=== PATIENT | female | born 2000 | race Two or more races ===

== ENCOUNTER 2022-05-28 18:11 | Emergency (ER) | payer BC, OTHER ==
[~2022-05-28] VITALS: Ht 165.1 cm; Wt 90.0 kg
--- NOTE | ~2022-05-28 | CONS ---
[facility] [address], [place] [address] Draft DATE OF CONSULTATION: 05/28/2022 CHIEF COMPLAINT: Right side pain. HISTORY OF PRESENT ILLNESS: Ms. Tucker is a pleasant 22-year-old female who presents to the emergency department with a 5-day history of acute right abdominal and flank pain. Menarche at age 13. LMP April 28, 2022 with irregular heavy cycles. The patient reports that she awoke Thursday morning to acute abdominal pain and she and her life partner called an ambulance. She reports pain was on her right side radiating to her umbilicus and to her back. She received morphine, but she reports that she has been in continued pain. The pain is progressive, rated 8/10, colicky in nature. She describes "it is like a string attached to my uterus and when I pee it feels like everything is going to come out, it hurts that bad." Again, the patient with irregular cycles, bleeding 14 days of the month, heavy all 14 days with clots and accidents each day and worse at night. She reports that periods are very heavy and painful and the pain starts 1-2 days before onset of her pain and continues all the way through her bleeding. She reports that three years ago, she was diagnosed with endometriosis by her gynecologic specialist in [place] after a syncopal event and possibly of the skull fracture. It is unclear if they did diagnostic laparoscopy or excision of endometriosis. The patient was on norethindrone for abnormal bleeding and abnormal bleeding and contraception. However, the patient reports that her periods were not improved and she stopped this some time ago. The patient is bisexual with her life partner being female and she occasionally has sex with male, the last approximately six weeks ago. She uses condoms for contraception and denies history of STDs. The patient had gonorrhea and chlamydia screening done on 05/24 in the ER that was negative. She has since been seen at the [facility] Emergency Department and is again back to our ER sigifredojono. 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 PAST MEDICAL HISTORY: 1. 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 2. History of endometriosis. 3. Heart murmur. 4. Anemia. 5. Possible lymphoma or hyperreactive lymph nodes. PAST SURGICAL HISTORY: 1. The patient reports a robust surgical history including renal transplant at age 7 with inspector balance bridge and an other specialist at [facility]. 2. Renal biopsy. PATIENT NAME: ANITA TUCKER CONSULTATION DATE OF : 02 REPORT #: [id number] PHYSICIAN: RYNE SCHWARTZ DO PCP: OTHER PCP REPORT IS CONFIDENTIAL AND NOT TO BE RELEASED WITHOUT AUTHORIZATION [address] [address] Draft 3. History of biopsy of lymph nodes. 4. Umbilical hernia with mesh. 5. Tubes and ovaries. MEDICATIONS: 1. Astagraf. 2. Amlodipine. 3. Azathioprine. 4. Metoprolol. 5. Prednisone. ALLERGIES: 1. Warfarin. 2. Iodine. FAMILY HISTORY: 1. Crohn's. 2. Diabetes. 3. Endometriosis. 4. Possible uterine and/or ovarian cancer on her mother's side. SOCIAL HISTORY: The patient denies alcohol, drug, or tobacco use. PHYSICAL EXAMINATION: VITAL SIGNS: Temperature 98.2, pulse 85, respiratory rate 16, blood pressure 126/78. GENERAL: The patient is lying on hospital bed, appears comfortable. HEENT: Normocephalic, atraumatic. NECK: Supple. Trachea midline with no masses or lymphadenopathy. CHEST: Regular rate and rhythm. LUNGS: Clear to auscultation bilaterally. BREASTS: The patient did request a breast exam today, which was performed that demonstrates some fibrocystic changes bilaterally with no discrete or concerning breast masses. ABDOMEN: Complex abdominal scars consistent with her surgical history. Nondistended and somewhat tender along the right side both upper and lower quadrants with no flank pain to percussion. There is guarding, but no rebound is noted. EXTREMITIES: No edema, but significant burden of warts on her legs. PELVIC: Normal external genitalia with normal clitorus, urethral meatus, bilateral Sterrett's, and Bartholin glands. Speculum exam was not performed per the patient request. However, bimanual exam was performed that demonstrates soft, pliable, nontender pelvic floor, nontender urethra and very mildly tender bladder. No cervical motion tenderness. However, the uterus is somewhat tender. No adnexal masses bilaterally and some tenderness of the uterosacral and right adnexa. The patient also has significant right PATIENT NAME: ANITA TUCEKR CONSULTATION DATE OF : 02 REPORT #: [id number] PHYSICIAN: RYNE SCHWARTZ DO PCP: OTHER PCP REPORT IS CONFIDENTIAL AND NOT TO BE RELEASED WITHOUT AUTHORIZATION [address] [address] Draft upper quadrant pain to palpation again with no rebound noted. LABORATORY DATA: WBCs 6.9, hemoglobin 9.0, platelets 217. Sodium 139, potassium 3.4, chloride 106, CO2 of 21, BUN 24, creatinine 4.46 with GFR 14, glucose 94, calcium 8.4, AST 26, ALT 40, alkaline phosphatase 174. Gonorrhea and chlamydia were negative on 05/25/2022. Dysmenorrhea. IMAGING DATA: Transvaginal ultrasound 05/25/2022 demonstrates uterus 9.3 x 5.1 x 5.2 with 16 mm thick endometrium with the right ovary 2.4 x 4.0 x 3.6 cm with normal parenchyma and follicles. Left ovary 2.7 x 1.7 x 2.8 cm, also with normal parenchyma and follicles. Small amount of free fluid, likely physiologic. There was a 15 mm tube like tubular fluid-filled structure in the posterior cul-de-sac. CT abdomen and pelvis was recommended and performed that demonstrates right renal transplant kidney with atrophic [place] kidneys. Scant free fluid in the cul-de-sac with normal appearing adrenal glands, kidneys, ureters, urinary bladder, uterus, adnexa and pelvic sidewall. ASSESSMENT: Abdominal pain of unknown etiology. I suspect possible endometriosis flare. She has stopped her norethindrone and has irregular heavy cycles and is participating in sex with both men and women while using condoms. We reviewed her medications and the danger that they pose to . Also discussed the endometriosis is managed by surgical intervention with excision of endometriosis and/or hormonal intervention. I am unsure, which hormonal contraceptive is most appropriate for given her complex medical history and I recommend consultation with her inspector balance bridge and primary paint roller assembler in [place] for further evaluation and treatment. I do not see acute process requiring immediate intervention. The patient will keep her consultation with [facility] [place] next week. All izquierdo questions were answered to the best of my ability and patient's apparent satisfaction. Approximately 1 hour of time was spent today. Ryne Schwartz DO JDW/MODL /[id number] PATIENT NAME: ANITA TUCKER CONSULTATION DATE OF : 02 REPORT #: [id number] PHYSICIAN: RYNE SCHWARTZ DO PCP: OTHER PCP REPORT IS CONFIDENTIAL AND NOT TO BE RELEASED WITHOUT AUTHORIZATION [address] [address] Draft Copies: ~ PATIENT NAME: ANITA TUCKER CONSULTATION DATE OF : 02 REPORT #: [id number] PHYSICIAN: RYNE SCHWARTZ DO PCP: OTHER PCP REPORT IS CONFIDENTIAL AND NOT TO BE RELEASED WITHOUT AUTHORIZATION
[~2022-05-28 18:11] MED LIST: AMLODIPINE BESYL5 MG PO; ASTAGRAF XL5 MG PO; AZATHIOPRINE50 MG PO; METOPROLOL SUCC25 MG PO; OXYCODONE HCL5 MG PO; PREDNISONE5 MG PO
--- OUTSIDE RECORDS SUMMARY | 2022-05-28 18:14 | XMS ---
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 No recent Security Events currently on file CRITERIA MET - [facility] - 2 Visits in 30 Days - 6 ED Visits in 6 Months - [facility] - 3 Facilities in 90 Days C[facility], Clinic/Center: Thi FOWLER PHONE: Unknown Jorge Luis Rodriguez Community Health Worker 08/02/2019-Jose Eduardo Chand - PHONE: [phone] MELONY CRABTREE Community Health Worker 01/03/2022-Current PHONE: [phone] Care Guidelines exist for the following facilities: [facility] ( 11/12/2015 ) Pauly VISIT COUNT (12 MO.) [address] [place] [address] RUDDY Figueroa TOTAL 11 NOTE: Visits indicate total known visits. 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 04/05/2022 15:59 [facility] TYPE: Emergency DIAGNOSES: - hematuria [facility]02[facility]2022 [facility] TYPE: Emergency DIAGNOSES: - Gross hematuria - Other hydronephrosis - Kidney transplant status - Hematuria 01/03/2022 10:00 [email or web address] [place] TYPE: Emergency DIAGNOSES: - COVID-19 - VOGT COUGH SORE THROAT VOMITING MUSCLE ACHES FATIGUE + SCREENING - Other specified abnormal findings of blood chemistry - Abnormal results of kidney function studies 12/06/2021 06:42 [email or web address] [place] TYPE: Emergency DIAGNOSES: - NAUSEA VOMITING RUNNY NOSE CHILLS - Nausea with vomiting, unspecified 12/05/2021 10:03 [facility] [email or web address] [place] TYPE: Emergency DIAGNOSES: - SWOLLEN LYMPH NODES VOMITING SORE THROAT + SCREENING - Generalized enlarged lymph nodes 11/26/2021 20:00 [facility] TYPE: Emergency DIAGNOSES: - Emesis - Chronic kidney disease, unspecified - Acquired absence of kidney - Dehydration - Chest Pain - Vomiting, unspecified 10/13/2021 07:51 [facility] [place] TYPE: Emergency DIAGNOSES: - Chronic kidney disease, unspecified - poss uti and kidney infection - Dysuria 05/31/2021 15:07 [facility] [place] TYPE: Emergency DIAGNOSES: - Other specified abnormal uterine and vaginal bleeding - ABD PAIN AND NEAR FAINTING INPATIENT VISIT TRACKING (12 MO.) 04/05/2022 15:59 [facility] TYPE: Nephrology DIAGNOSES: - hematuria 12/09/2021 18:00 [facility] TYPE: Nephrology DIAGNOSES: - Enlargement of lymph nodes 10/14/2021 18:59 [facility] TYPE: Nephrology COMPLAINT: - kidney tx, UTI DIAGNOSES: - Urinary tract infection, site not specified 06/01/2021 13:02 [facility] TYPE: Nephrology DIAGNOSES: - Elevated Creatinine Levels - Complications of transplanted kidney [email or web address]
[2022-05-28] MEDS ORDERED: HYDROCODON-ACE1 EA10 PO (21:59)
[2022-05-28] MEDS ORDERED: ONDANSETRON ODT8 MG PO (21:59)
== END 2022-05-28 22:20 | disposition home or self-care (01) ==
LOC: ED 18:11
DX: R10.9 Unspecified abdominal pain (principal); D64.9 Anemia, unspecified; Z88.8 Allergy status to other drugs, medicaments and biological substances; Z79.899 Other long term (current) drug therapy
CPT/HCPCS: 36415; 80053; 85025; 96374; 96375; 99284-25; A9270; J1170; J2405

== ENCOUNTER 2022-06-20 18:13 | Emergency (ER) | payer BC, OTHER ==
[~2022-06-20] VITALS: Ht 165.1 cm; Wt 98.4 kg
[~2022-06-20 18:13] MED LIST changes: +HYDROCODON-ACE1 EA10 PO; +ONDANSETRON ODT8 MG PO
--- OUTSIDE RECORDS SUMMARY | 2022-06-20 18:16 | XMS ---
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 No recent Security Events currently on file CRITERIA MET - PDMP - [facility] - 3 Facilities in 90 Days - 6 ED Visits in 6 Months - [facility] - 2 Visits in 30 Days CARE PROVIDERS [facility], Clinic/Center: Dental Jose Eduardo FOWLER PHONE: Unknown Jorge Luis Rodriguez Community Health Worker 08/02/2019-Jose Eduardo Chand - PHONE: [phone] MELONY CRABTREE Community Health Worker 01/03/2022-Current PHONE: [phone] Care Guidelines exist for the following facilities: [facility] ( 11/12/2015 ) Pauly VISIT COUNT (12 MO.) [address] 3 RUDDY Figueroa TOTAL 12 NOTE: Visits indicate total known visits. 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 - Allergy status to other drugs, medicaments and biological substances 05/26/2022 21:47 [facility] [place] TYPE: Emergency DIAGNOSES: - Unspecified ovarian cyst, right side - CYST VOMITING FEVER - Right lower quadrant pain 05/25/2022 07:08 [facility] [place] TYPE: Emergency COMPLAINT: - ABDOMINAL PAIN DIAGNOSES: - Other nonmedicinal substance allergy status - Kidney transplant status - Chronic kidney disease, unspecified - Right lower quadrant pain - nursing home (current) use of anticoagulants 04/05/2022 15:59 [facility] TYPE: Emergency DIAGNOSES: - hematuria 04/02/2022 13:50 [facility] TYPE: Emergency DIAGNOSES: - Gross hematuria - Other hydronephrosis - Kidney transplant status - Hematuria 01/03/2022 10:00 [facility] TYPE: Emergency DIAGNOSES: - COVID-19 - VOGT COUGH SORE THROAT VOMITING MUSCLE ACHES FATIGUE + SCREENING - Other specified abnormal findings of blood chemistry - Abnormal results of kidney function studies 12/06/2021 06:42 [facility] [employer] [facility] [place] TYPE: Emergency DIAGNOSES: - NAUSEA VOMITING RUNNY NOSE CHILLS - Nausea with vomiting, unspecified 12/05/2021 10:03 [facility] [place] TYPE: Emergency DIAGNOSES: - SWOLLEN LYMPH NODES VOMITING SORE THROAT + SCREENING - Generalized enlarged lymph nodes 11/26/2021 20:00 [facility] TYPE: Emergency DIAGNOSES: - Vomiting, unspecified - Emesis - Chronic kidney disease, unspecified - Acquired absence of kidney - Dehydration - Chest Pain 10/13/2021 07:51 [facility] [place] TYPE: Emergency DIAGNOSES: - Chronic kidney disease, unspecified - poss uti and kidney infection - Dysuria INPATIENT VISIT TRACKING (12 MO.) 04/05/2022 15:59 [facility] TYPE: Nephrology DIAGNOSES: - hematuria 12/09/2021 18:00 [facility] TYPE: Nephrology DIAGNOSES: - Enlargement of lymph nodes 10/14/2021 18:59 [facility] TYPE: Nephrology COMPLAINT: - kidney tx, UTI DIAGNOSES: - Urinary tract infection, site not specified [id number]
[2022-06-20] MEDS ORDERED: HYDROCODON-ACE1 EA10 PO (21:52)
== END 2022-06-20 22:07 | disposition home or self-care (01) ==
LOC: ED 18:13
DX: R10.2 Pelvic and perineal pain (principal); R10.31 Right lower quadrant pain; D64.9 Anemia, unspecified
CPT/HCPCS: 36415; 76775; 76830; 76856; 80053; 81001; 83690; 84703; 85025; 96374; 96375; 99284-25; A9270; J1170; J2405

== ENCOUNTER 2022-06-30 15:13 | Emergency (ER) | payer BC, OTHER ==
[~2022-06-30] VITALS: Ht 165.1 cm; Wt 89.4 kg
[2022-06-30] MEDS ORDERED: SULFAMETHOXAZO1 EAC1 PO (16:57)
--- OUTSIDE RECORDS SUMMARY | 2022-06-30 17:03 | XMS ---
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 No recent Security Events currently on file CRITERIA MET - PDMP - [facility] - 2 Visits in 30 Days - [facility] - 3 Facilities in 90 Days - 6 ED Visits in 6 Months CARE PROVIDERS [facility], Clinic/Center: Dental Jose Eduardo FOWLER PHONE: Unknown Jorge Luis Rodriguez Community Health Worker 08/02/2019-Jose Eduardo Chand - PHONE: [phone] MELONY CRABTREE Community Health Worker 01/03/2022-Current PHONE: [phone] Care Guidelines exist for the following facilities: [facility] ( 11/12/2015 ) Pauly VISIT COUNT (12 MO.) [address] 5 RUDDY Figueroa TOTAL 15 NOTE: Visits indicate total known visits. ED/UCC VISIT TRACKING (12 MO.) 06/30/2022 15:14 [facility] [place] TYPE: Emergency COMPLAINT: - ABD PAIN,N/V,DIZZY,HURTS TO URINATE 06/29/2022 12:[address] [facility] [place] TYPE: Emergency COMPLAINT: - VOMITING, ABD PAIN 06/25/2022 03:03 [facility] [place] TYPE: Emergency DIAGNOSES: - Pelvic and perineal pain - abd pain nausea - Acute cystitis without hematuria 06/20/2022 18:14 [facility] [facility]: [facility] COMPLAINT: - VAGINAL ISSUE DIAGNOSES: - Anemia, unspecified - Pelvic and perineal pain - Right lower quadrant pain 06/05/2022 08:56 [facility] [place] TYPE: Emergency DIAGNOSES: - CYST PROBLEM - Unspecified ovarian cyst, right side 05/28/2022 18:12 [facility] [place] TYPE: Emergency COMPLAINT: - RT SIDE PAIN DIAGNOSES: - Unspecified abdominal pain - Anemia, unspecified - Other care home (current) drug therapy - Allergy status to other drugs, medicaments and biological substances 05/26/2022 21:47 [facility] [place] TYPE: Emergency DIAGNOSES: - Unspecified ovarian cyst, right side - CYST VOMITING FEVER - Right lower quadrant pain 05/25/2022 07:[address] [facility] 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 04/05/2022 15:59 [facility] TYPE: Emergency DIAGNOSES: - hematuria 04/02/2022 13:50 [facility] TYPE: Emergency DIAGNOSES: - Gross hematuria - Other hydronephrosis - Kidney transplant status - Hematuria 01/03/2022 10:00 [facility] [place] TYPE: Emergency DIAGNOSES: - COVID-19 - VOGT COUGH SORE THROAT VOMITING MUSCLE ACHES FATIGUE + SCREENING - Other specified abnormal findings of blood chemistry - Abnormal results of kidney function studies 12/06/2021 06:42 [facility] [place] TYPE: Emergency DIAGNOSES: - NAUSEA VOMITING RUNNY NOSE CHILLS - Nausea with vomiting, unspecified 12/05/2021 10:03 [facility] [place] [facility]: [facility] DIAGNOSES: - SWOLLEN LYMPH NODES VOMITING SORE THROAT + SCREENING - Generalized enlarged lymph nodes 11/26/2021 20:00 [facility] TYPE: Emergency DIAGNOSES: - Vomiting, unspecified - Emesis - Chronic kidney disease, unspecified - Acquired absence of kidney - Dehydration - Chest Pain 10/13/2021 07:51 [facility] [place] TYPE: Emergency DIAGNOSES: - Chronic kidney disease, unspecified - poss uti and kidney infection - Dysuria INPATIENT VISIT TRACKING (12 MO.) 04/05/2022 15:59 [facility] TYPE: Nephrology DIAGNOSES: - hematuria 12/09/2021 18:00 [facility] TYPE: Nephrology DIAGNOSES: - Enlargement of lymph nodes 10/14/2021 18:59 [facility] TYPE: Nephrology COMPLAINT: - kidney tx, UTI DIAGNOSES: - Urinary tract infection, site not specified [id number]
== END 2022-06-30 23:45 | disposition home or self-care (01) ==
LOC: ED 15:13
DX: R10.32 Left lower quadrant pain (principal); R10.31 Right lower quadrant pain; N70.11 Chronic salpingitis; D64.9 Anemia, unspecified; Z94.0 Kidney transplant status; Z88.8 Allergy status to other drugs, medicaments and biological substances; Z91.041 Radiographic dye allergy status; Z79.899 Other long term (current) drug therapy
CPT/HCPCS: 36415; 76775; 76830; 76857; 80053; 81001; 84703; 85025; 96374; 96375; 99284-25; J2270; J2405; J7030

== ENCOUNTER 2022-07-18 03:20 | Emergency (ER) | payer BC, OTHER ==
[~2022-07-18] VITALS: Ht 165.1 cm; Wt 89.4 kg
[~2022-07-18 03:20] MED LIST changes: +SULFAMETHOXAZO1 EAC1 PO
--- OUTSIDE RECORDS SUMMARY | 2022-07-18 03:23 | XMS ---
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 - Patient with suicidal and/or homicidal ideations eloped. - Patient eloped with IV in place. Details: Patient LWBS. CRITERIA MET - PDMP - [facility] - 2 Visits in 30 Days - 6 ED Visits in 6 Months CARE PROVIDERS [facility], Clinic/Center: Dental Current IN[facility] PHONE: Unknown Jorge Luis Rodriguez Community Health Worker 08/02/2019-[facility] - PHONE: [phone] MELONY CRABTREE Community Health Worker 01/03/2022-[facility] PHONE: [phone] Care Guidelines exist for the following facilities: [facility] ( 11/12/2015 ) Pauly VISIT COUNT (12 MO.) 8 [facility] 2 [facility] 1 [facility] 7 [facility] . TOTAL 18 NOTE: Visits indicate total known visits. ED/UCC VISIT TRACKING (12 MO.) 07/18/2022 03:20 [facility] [place] TYPE: Emergency COMPLAINT: - RIGHT SIDE ABD PAIN 07/17/2022 02:19 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 06/29/2022 12:59 [facility] [place] TYPE: Emergency COMPLAINT: - VOMITING, ABD PAIN 06/25/2022 03:03 [facility] [place] TYPE: Emergency DIAGNOSES: - abd pain nausea - Acute cystitis without hematuria - Pelvic and perineal pain 06/20/2022 18:14 [facility] [place] TYPE: Emergency COMPLAINT: - VAGINAL ISSUE DIAGNOSES: - Pelvic and perineal pain - Right lower quadrant pain - Anemia, unspecified 06/05/2022 08:56 [facility] [place] TYPE: Emergency DIAGNOSES: - Unspecified ovarian cyst, right side - CYST PROBLEM 05/28/2022 18:12 [facility] [place] TYPE: Emergency COMPLAINT: - RT SIDE PAIN DIAGNOSES: - Other correction (current) drug therapy - Allergy status to other drugs, medicaments and biological substances - Unspecified abdominal pain - Anemia, unspecified 05/26/2022 21:47 [facility] TYPE: Emergency DIAGNOSES: - CYST VOMITING FEVER - Right lower quadrant pain - Unspecified ovarian cyst, right side 05/25/2022 07:08 [facility] [place] TYPE: Emergency COMPLAINT: - ABDOMINAL PAIN DIAGNOSES: - Chronic kidney disease, unspecified - Right lower quadrant pain - 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 - Other nonmedicinal substance allergy status - Kidney transplant status 04/05/2022 15:59 [facility] TYPE: Emergency DIAGNOSES: - hematuria 04/02/2022 13:50 [facility] [place] TYPE: Emergency DIAGNOSES: - Kidney transplant status - Hematuria - Gross hematuria - Other hydronephrosis 01/03/2022 10:00 [facility] [place] TYPE: Emergency DIAGNOSES: - Other specified abnormal findings of blood chemistry - Abnormal results of kidney function studies - COVID- - VOGT COUGH SORE THROAT VOMITING MUSCLE ACHES FATIGUE + SCREENING 12/06/2021 06:42 [facility] [place] TYPE: Emergency DIAGNOSES: - Nausea with vomiting, unspecified - NAUSEA VOMITING RUNNY NOSE CHILLS 12/05/2021 10:03 [facility] [place] TYPE: Emergency DIAGNOSES: - Generalized enlarged lymph nodes - SWOLLEN LYMPH NODES VOMITING SORE THROAT + SCREENING 11/26/2021 20:00 [facility]: Emergency DIAGNOSES: - Acquired absence of kidney - Dehydration - Chest Pain - Vomiting, unspecified - Emesis - Chronic kidney disease, unspecified 10/13/2021 07:51 [facility] TYPE: Emergency DIAGNOSES: - poss uti and kidney infection - Dysuria - Chronic kidney disease, unspecified INPATIENT VISIT TRACKING (12 MO.) 04/05/2022 15:59 [facility] TYPE: Nephrology DIAGNOSES: - hematuria 12/09/2021 18:00 [facility] TYPE: Nephrology DIAGNOSES: - Enlargement of lymph nodes 10/14/2021 18:59 [facility] TYPE: Nephrology COMPLAINT: - kidney tx, UTI DIAGNOSES: - Urinary tract infection, site not specified [id number]
[2022-07-18] MEDS ORDERED: ONDANSETRON ODT8 MG PO (05:23)
== END 2022-07-18 05:36 | disposition home or self-care (01) ==
LOC: ED 03:20
DX: R10.31 Right lower quadrant pain (principal); G89.29 Other chronic pain; D64.9 Anemia, unspecified; Z94.0 Kidney transplant status; Z88.8 Allergy status to other drugs, medicaments and biological substances; Z91.041 Radiographic dye allergy status; Z79.899 Other long term (current) drug therapy
CPT/HCPCS: 36415; 76705; 76830; 76856; 80053; 81001; 83690; 83735; 84703; 85025; 99284-25; A9270

== ENCOUNTER 2022-08-19 12:09 | Emergency (ER) | payer BC, OTHER ==
[~2022-08-19] VITALS: Ht 165.1 cm; Wt 87.5 kg
--- OUTSIDE RECORDS SUMMARY | 2022-08-19 12:14 | XMS ---
PreManage Notification: ANITA TUCKER Security Game Bird Farmer Events 1 event(s) in the past 18 months Most recent security events: Elopement at [facility] 07/03/2022 15:09 - Patient eloped before treatment completed. - Patient with suicidal and/or homicidal ideations eloped. - Patient eloped with IV in place. Details: Patient LWBS. CRITERIA MET - 6 ED Visits in 6 Months - [facility] CARE PROVIDERS Jorge Luis Rodriguez Community Health Worker 08/02/2019-Jose Eduardo Chand - PHONE: [phone] MELONY CRABTREE Community Health Worker 01/03/2022-Current PHONE: [phone] Care Guidelines exist for the following facilities: [facility] ( 11/12/2015 ) Pauly VISIT COUNT (12 MO.) [address] 8 RUDDY Figueroa TOTAL 19 NOTE: Visits indicate total known visits. ED/UCC VISIT TRACKING (12 MO.) 08/19/2022 12:10 [facility] [place] TYPE: Emergency COMPLAINT: - VAGINAL BLEEDING 07/18/2022 03:20 [facility] [place] TYPE: Emergency COMPLAINT: - RIGHT SIDE ABD PAIN DIAGNOSES: - Allergy status to other drugs, medicaments and biological substances - Other terminal clerk (current) drug therapy - Anemia, unspecified - Kidney transplant status - Radiographic dye allergy status - Right lower quadrant pain - Other chronic pain 07/17/2022 02:19 [facility] [place] TYPE: Emergency DIAGNOSES: - ABD PAIN - Right lower quadrant pain 07/03/2022 15:09 [facility] [place] TYPE: Emergency COMPLAINT: - ABD PAIN, VOMITING 06/30/2022 15:14 [facility] [place] TYPE: Emergency COMPLAINT: - ABD PAIN,N/V,DIZZY,HURTS TO URINATE DIAGNOSES: - Fever, unspecified - Radiographic dye allergy status - Chronic salpingitis - Right lower quadrant pain - Left lower quadrant pain - Kidney transplant status - Allergy status to other drugs, medicaments and biological substances - Other alf (current) drug therapy - Anemia, unspecified 06/29/2022 12:[address] [facility] [place] TYPE: Emergency COMPLAINT: - VOMITING, ABD PAIN 06/25/2022 03:03 [facility] [place] TYPE: Emergency DIAGNOSES: - abd pain nausea - Acute cystitis without hematuria - Pelvic and perineal pain 06/20/2022 18:[facility] COMPLAINT: - VAGINAL ISSUE DIAGNOSES: - Pelvic and perineal pain - Right lower quadrant pain - Anemia, unspecified 06/05/2022 08:56 [facility] [place] TYPE: Emergency DIAGNOSES: - Unspecified ovarian cyst, right side - CYST PROBLEM 05/28/2022 18:12 [facility] [place] TYPE: Emergency COMPLAINT: - RT SIDE PAIN DIAGNOSES: - Other terminal clerk (current) drug therapy - Allergy status to other drugs, medicaments and biological substances - Unspecified abdominal pain - Anemia, unspecified 05/26/2022 21:47 [facility] [place] TYPE: Emergency DIAGNOSES: - CYST VOMITING FEVER - Right lower quadrant pain - Unspecified ovarian cyst, right side 05/25/2022 07:08 [facility] [place] TYPE: Emergency COMPLAINT: - ABDOMINAL PAIN DIAGNOSES: - Chronic kidney disease, unspecified - Right lower quadrant pain - jail (current) use of anticoagulants - Other nonmedicinal substance allergy status - Kidney transplant status 04/05/2022 15:59 [facility] TYPE: Emergency DIAGNOSES: - hematuria 04/02/2022 13:50 [facility] TYPE: Emergency DIAGNOSES: - Kidney transplant status - Hematuria - Gross hematuria - Other hydronephrosis 01/03/2022 10:00 [facility] [place] TYPE: Emergency DIAGNOSES: - Other specified abnormal findings of blood chemistry - Abnormal results of kidney function studies - COVID-19 - VOGT COUGH SORE THROAT VOMITING MUSCLE ACHES FATIGUE + SCREENING 12/06/2021 06:42 [facility] [place] TYPE: Emergency DIAGNOSES: - Nausea with vomiting, unspecified - NAUSEA VOMITING RUNNY NOSE CHILLS 12/05/2021 10:03 [email or web address] DIAGNOSES: - Generalized enlarged lymph nodes - SWOLLEN LYMPH NODES VOMITING SORE THROAT + SCREENING 11/26/2021 20:00 [facility] TYPE: Emergency DIAGNOSES: - Acquired absence of kidney - Dehydration - Chest Pain - Vomiting, unspecified - Emesis - Chronic kidney disease, unspecified 10/13/2021 07:51 [email or web address] [place] TYPE: Emergency DIAGNOSES: - poss uti and kidney infection - Dysuria - Chronic kidney disease, unspecified INPATIENT VISIT TRACKING (12 MO.) 04/05/2022 15:59 [facility] TYPE: Nephrology DIAGNOSES: - hematuria 12/09/2021 18:00 [facility] TYPE: Nephrology DIAGNOSES: - Enlargement of lymph nodes 10/14/2021 18:59 [facility] TYPE: Nephrology COMPLAINT: - kidney tx, UTI DIAGNOSES: - Urinary tract infection, site not specified [id number]
[2022-08-19] MEDS ORDERED: PROVERA10 MG PO (19:24)
[2022-08-19] MEDS ORDERED: CEPHALEXIN500 M1 PO (19:58)
== END 2022-08-19 20:10 | disposition home or self-care (01) ==
LOC: ED 12:09
DX: N93.9 Abnormal uterine and vaginal bleeding, unspecified (principal); R10.2 Pelvic and perineal pain; N18.9 Chronic kidney disease, unspecified; D63.1 Anemia in chronic kidney disease; Z88.8 Allergy status to other drugs, medicaments and biological substances; Z94.0 Kidney transplant status; Z91.041 Radiographic dye allergy status; Z79.899 Other long term (current) drug therapy
CPT/HCPCS: 36415; 74176; 80048; 80197; 81001; 84703; 85025; 85610; 86900; 86901; 87088; 96361; 96374; 96375; 96376; 99284-25; A9270; J1170; J2405; J7030

== ENCOUNTER 2022-09-12 23:02 | Emergency (ER) | payer BC, OTHER ==
[~2022-09-12] VITALS: Ht 165.1 cm; Wt 87.5 kg
[~2022-09-12 23:02] MED LIST changes: +CEPHALEXIN500 M1 PO; +PROVERA10 MG PO
--- OUTSIDE RECORDS SUMMARY | 2022-09-13 00:57 | XMS ---
PreManage Notification: ANITA TUCKER Security Supervisor Insulation Events 1 event(s) in the past 18 months Most recent security events: Elopement at [facility] 07/03/2022 15:09 - Patient eloped before treatment completed. - Patient with suicidal and/or homicidal ideations eloped. - Patient eloped with IV in place. Details: Patient LWBS. CRITERIA MET - PDMP - 6 ED Visits in 6 Months - [facility] - 2 Visits in 30 Days CARE PROVIDERS -Caes- Dentist: Assessment Nurse [facility] PHONE: [phone] Jorge Luis Rodriguez Community Health Worker 08/02/2019-[facility] PHONE: [phone] MELONY CRABTREE Community Health Worker 01/03/2022-[facility] PHONE: [phone] Care Guidelines exist for the following facilities: [facility] ( 11/12/2015 ) Pauly VISIT COUNT (12 MO.) 8 [facility] 2 [facility] 1 [facility] 9 [facility] . TOTAL 20 NOTE: Visits indicate total known visits. ED/UCC VISIT TRACKING (12 MO.) 09/12/2022 23:04 [facility] [place] TYPE: Emergency COMPLAINT: - ABD AND BACK PAIN 08/19/2022 12:10 [facility] [place] TYPE: Emergency COMPLAINT: - VAGINAL BLEEDING DIAGNOSES: - Kidney transplant status - Allergy status to other drugs, medicaments and biological substances - Radiographic dye allergy status - Pelvic and perineal pain - Chronic kidney disease, unspecified - Anemia in chronic kidney disease - Abnormal uterine and vaginal bleeding, unspecified - Other fpc (current) drug therapy 07/18/2022 03:20 [facility] [place] TYPE: Emergency COMPLAINT: - RIGHT SIDE ABD PAIN DIAGNOSES: - Allergy status to other drugs, medicaments and biological substances - Other fpc (current) drug therapy - Anemia, unspecified - Kidney transplant status - Radiographic dye allergy status - Right lower quadrant pain - Other chronic pain 07/17/2022 02:19 [facility] [place] TYPE: Emergency DIAGNOSES: - ABD PAIN [...] drugs, medicaments and biological substances - 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: Emergency DIAGNOSES: - abd pain nausea - Acute cystitis without hematuria - Pelvic and perineal pain 06/20/2022 18:14 [facility] [place] TYPE: Emergency COMPLAINT: - VAGINAL ISSUE DIAGNOSES: - Pelvic and perineal pain - Right lower quadrant pain - Anemia, unspecified 06/05/2022 08:56 [facility] [facility] [place] TYPE: Emergency DIAGNOSES: - Unspecified ovarian cyst, right side - CYST PROBLEM 05/28/2022 18:12 [facility] [place] TYPE: Emergency COMPLAINT: - RT SIDE PAIN DIAGNOSES: - Other fpc (current) drug therapy - Allergy status to other drugs, medicaments and biological substances - Unspecified abdominal pain - Anemia, unspecified 05/26/2022 21:47 [facility] [place] TYPE: Emergency DIAGNOSES: - CYST VOMITING FEVER - Right lower quadrant pain - Unspecified ovarian cyst, right side 05/25/2022 07:08 [facility] TYPE: Emergency COMPLAINT: - ABDOMINAL PAIN DIAGNOSES: - Chronic kidney disease, unspecified - Right lower quadrant pain - correction (current) use of anticoagulants - Other nonmedicinal substance allergy status - Kidney transplant status 04/05/2022 15:59 [facility] TYPE: Emergency DIAGNOSES: - hematuria 04/02/2022 13:[facility] TYPE: Emergency DIAGNOSES: - Kidney transplant status - Hematuria - Gross hematuria - Other hydronephrosis 01/03/2022 10:00 [facility] [place] TYPE: Emergency DIAGNOSES: - Other specified abnormal findings of blood chemistry - Abnormal results of kidney function studies - COVID-19 - VOGT COUGH SORE THROAT VOMITING MUSCLE ACHES FATIGUE + SCREENING 12/06/2021 06:42 [facility] [place] TYPE: Emergency DIAGNOSES: - Nausea with vomiting, unspecified - NAUSEA VOMITING RUNNY NOSE CHILLS 12/05/2021 10:03 [facility] [place] TYPE: Emergency DIAGNOSES: - Generalized enlarged lymph nodes - SWOLLEN LYMPH NODES VOMITING SORE THROAT + SCREENING 11/26/2021 20:00 [facility] TYPE: Emergency DIAGNOSES: - Acquired absence of kidney - Dehydration - Chest Pain - Vomiting, unspecified - Emesis - Chronic kidney disease, unspecified 10/13/2021 07:51 [facility] [place] TYPE: Emergency DIAGNOSES: - poss uti and kidney infection - Dysuria - Chronic kidney disease, unspecified INPATIENT VISIT TRACKING (12 MO.) 04/05/2022 15:59 [facility] TYPE: Nephrology DIAGNOSES: - hematuria 12/09/2021 18:00 [facility] TYPE: Nephrology DIAGNOSES: - Enlargement of lymph nodes 10/14/2021 18:59 [facility] TYPE: Nephrology COMPLAINT: - kidney tx, UTI DIAGNOSES: - Urinary tract infection, site not specified [id number]
[2022-09-13] MEDS ORDERED: PREMARIN0.625 MG PO (03:21)
== END 2022-09-13 04:30 | disposition home or self-care (01) ==
LOC: ED 23:02
DX: D64.9 Anemia, unspecified (principal); N92.1 Excessive and frequent menstruation with irregular cycle; Z88.8 Allergy status to other drugs, medicaments and biological substances; Z79.899 Other long term (current) drug therapy; Z79.52 Long term (current) use of systemic steroids
CPT/HCPCS: 36415; 36430; 80053; 81001; 84703; 85025; 86850; 86900; 86901; 86922; 96374; 96375; 99284-25; A9270; J1885; J3360; J7121; P9016

== ENCOUNTER 2022-10-03 12:36 | Emergency (ER) | payer BC, OTHER ==
[~2022-10-03] VITALS: Ht 165.1 cm; Wt 87.5 kg
[~2022-10-03 12:36] MED LIST changes: +PREMARIN0.625 MG PO
--- OUTSIDE RECORDS SUMMARY | 2022-10-03 12:39 | XMS ---
PreManage Notification: ANITA TUCKER Security Core Finisher Events 1 event(s) in the past 18 months Most recent security events: Elopement at [facility] 07/03/2022 15:09 - Patient eloped before treatment completed. - Patient with suicidal and/or homicidal ideations eloped. - Patient eloped with IV in place. Details: Patient LWBS. CRITERIA MET - [facility] - 2 Visits in 30 Days - PDMP - 6 ED Visits in 6 Months CARE PROVIDERS -Case- Dentist: Six Horse Hitch Driver [facility] PHONE: [phone] Jorge Luis Rodriguez Community Health Worker 08/02/2019-[facility] PHONE: [phone] MELONY CRABTREE Community Health Worker 01/03/2022-[facility] PHONE: [phone] Care Guidelines exist for the following facilities: [facility] ( 11/12/2015 ) Pauly VISIT COUNT (12 MO.) 8 [facility] 2 [facility] 1 [facility] 10 RUDDY Burns . TOTAL 21 NOTE: Visits indicate total known visits. ED/UCC VISIT TRACKING (12 MO.) 10/03/2022 12:37 [facility] [place] TYPE: Emergency COMPLAINT: - ABD PAIN, LOWER BACK PAIN 09/12/2022 23:04 [facility] [place] TYPE: Emergency COMPLAINT: - ABD AND BACK PAIN DIAGNOSES: - Lower abdominal pain, unspecified - Anemia, unspecified - Excessive and frequent menstruation with irregular cycle - Allergy status to other drugs, medicaments and biological substances - Other longwall headgate operator (current) drug therapy - custodial (current) use of systemic steroids 08/19/2022 12:10 [facility] [place] TYPE: Emergency COMPLAINT: - VAGINAL BLEEDING DIAGNOSES: - Kidney transplant status - Allergy status to other drugs, medicaments and biological substances - Radiographic dye allergy status - Pelvic and perineal pain - Chronic kidney disease, unspecified - Anemia in chronic kidney disease - Abnormal uterine and vaginal bleeding, unspecified - Other longwall headgate operator (current) drug therapy 07/18/2022 03:20 [facility] [place] TYPE: Emergency COMPLAINT: - RIGHT SIDE ABD PAIN DIAGNOSES: - Allergy status to other drugs, medicaments and biological substances - Other care home (current) drug therapy - Anemia, unspecified - Kidney transplant status - Radiographic dye allergy status - Right lower quadrant pain - Other chronic pain 07/17/2022 02:19 [facility] [place] TYPE: Emergency DIAGNOSES: - [...] drugs, medicaments and biological substances - Other longwall headgate operator (current) drug therapy - Anemia, unspecified 06/29/2022 12:59 [facility] [place] TYPE: Emergency COMPLAINT: - VOMITING, ABD PAIN 06/25/2022 03:03 [facility] [place] TYPE: Emergency DIAGNOSES: - abd pain nausea - Acute cystitis without hematuria - Pelvic and perineal pain 06/20/2022 18:14 [facility] [place] TYPE: Emergency COMPLAINT: - VAGINAL ISSUE DIAGNOSES: - Pelvic and perineal pain - Right lower quadrant pain - Anemia, unspecified 06/05/2022 08:56 [facility] [place] TYPE: Emergency DIAGNOSES: - Unspecified ovarian cyst, right side - CYST PROBLEM 05/28/2022 18:12 [facility] [place] TYPE: Emergency COMPLAINT: - RT SIDE PAIN DIAGNOSES: - Other longwall headgate operator (current) drug therapy - Allergy status to other drugs, medicaments and biological substances - Unspecified abdominal pain - Anemia, unspecified 05/26/2022 21:47 [facility] [place] TYPE: Emergency DIAGNOSES: - CYST VOMITING FEVER - Right lower quadrant pain - Unspecified ovarian cyst, right side 05/25/2022 07:08 [facility] [place] TYPE: Emergency COMPLAINT: - ABDOMINAL PAIN DIAGNOSES: - Chronic kidney disease, unspecified - Right lower quadrant pain - custodial (current) use of anticoagulants - Other nonmedicinal substance allergy status - Kidney transplant status 04/05/2022 15:59 [facility] TYPE: Emergency DIAGNOSES: - hematuria 04/02/2022 13:50 [facility] TYPE: Emergency DIAGNOSES: - Kidney transplant status - Hematuria - Gross hematuria - Other hydronephrosis 01/03/2022 10:00 [facility] [place] TYPE: Emergency DIAGNOSES: - Other specified abnormal findings of blood chemistry - Abnormal results of kidney function studies - COVID-19 - VOGT COUGH SORE THROAT VOMITING MUSCLE ACHES FATIGUE + SCREENING 12/06/2021 06:42 [facility] [place] TYPE: Emergency DIAGNOSES: - Nausea with vomiting, unspecified - NAUSEA VOMITING RUNNY NOSE CHILLS 12/05/2021 10:03 [facility] [place] TYPE: Emergency DIAGNOSES: - Generalized enlarged lymph nodes - SWOLLEN LYMPH NODES VOMITING SORE THROAT + SCREENING 11/26/2021 20:00 [facility] TYPE: Emergency DIAGNOSES: - Acquired absence of kidney - Dehydration - Chest Pain - Vomiting, unspecified - Emesis - Chronic kidney disease, unspecified Plus 1 More Visit INPATIENT VISIT TRACKING (12 MO.) 04/05/2022 15:59 [facility] TYPE: Nephrology DIAGNOSES: - hematuria 12/09/2021 18:00 [facility] TYPE: Nephrology DIAGNOSES: - Enlargement of lymph nodes 10/14/2021 18:59 [facility] TYPE: Nephrology COMPLAINT: - kidney tx, UTI DIAGNOSES: - Urinary tract infection, site not specified [id number]
[2022-10-03] MEDS ORDERED: FERREX 150150 MG PO (13:51)
[2022-10-03] MEDS ORDERED: CEPHALEXIN500 M1 PO (19:06)
[2022-10-03] MEDS ORDERED: ONDANSETRON ODT4 MG PO (19:11)
== END 2022-10-03 19:25 | disposition home or self-care (01) ==
LOC: ED 12:36
DX: N39.0 Urinary tract infection, site not specified (principal); D64.9 Anemia, unspecified; N18.9 Chronic kidney disease, unspecified; Z88.8 Allergy status to other drugs, medicaments and biological substances; Z79.01 Long term (current) use of anticoagulants; Z79.899 Other long term (current) drug therapy; Z20.822 Contact with and (suspected) exposure to COVID-19
CPT/HCPCS: 36415; 51701; 74176; 80053; 81001; 83690; 84703; 85025; 93976; 99284-25; A9270; C9803; J2405; J7040; U0003

== ENCOUNTER 2022-10-12 08:40 | Emergency (ER) | payer BC, OTHER ==
[~2022-10-12] VITALS: Ht 165.1 cm; Wt 99.3 kg
[~2022-10-12 08:40] MED LIST changes: +FERREX 150150 MG PO; +ONDANSETRON ODT4 MG PO
--- OUTSIDE RECORDS SUMMARY | 2022-10-12 08:42 | XMS ---
PreManage Notification: ANITA TUCKER Security Cut Filer Events 1 event(s) in the past 18 months Most recent security events: Elopement at [facility] 07/03/2022 15:09 - Patient eloped before treatment completed. - Patient with suicidal and/or homicidal ideations eloped. - Patient eloped with IV in place. Details: Patient LWBS. CRITERIA MET - 6 ED Visits in 6 Months - [facility] - 2 Visits in 30 Days CARE PROVIDERS -Case- Dentist: Equipment Processor [facility] PHONE: [phone] Jorge Luis Rodriguez Community Health Worker 08/02/2019-[facility] PHONE: [phone] MELONY CRABTREE Community Health Worker 01/03/2022-[facility] PHONE: [phone] Care Guidelines exist for the following facilities: [facility] ( 11/12/2015 ) Pauly VISIT COUNT (12 MO.) 8 [facility] [address] [facility] 1 [facility] 11 [facility] . TOTAL 22 NOTE: Visits indicate total known visits. ED/UCC VISIT TRACKING (12 MO.) 10/12/2022 08:41 [facility] [place] TYPE: Emergency COMPLAINT: - VOMITING 10/03/2022 12:37 [facility] [place] TYPE: Emergency COMPLAINT: - ABD PAIN, LOWER BACK PAIN DIAGNOSES: - Contact with and (suspected) exposure to COVID-19 - Allergy status to other drugs, medicaments and biological substances - Anemia, unspecified - Chronic kidney disease, unspecified - Urinary tract infection, site not specified - Other terminal operations supervisor (current) drug therapy - Low back pain, unspecified - termite control service representative (current) use of anticoagulants 09/12/2022 23:04 [facility] [place] TYPE: Emergency COMPLAINT: - ABD AND BACK PAIN DIAGNOSES: - Other terminal operations supervisor (current) drug therapy - [facility] (current) use of systemic steroids - Lower abdominal pain, unspecified - Anemia, unspecified - Excessive and frequent menstruation with irregular cycle - Allergy status to other drugs, medicaments and biological substances 08/19/2022 12:10 [facility] [place] TYPE: Emergency COMPLAINT: - VAGINAL BLEEDING DIAGNOSES: - Anemia in chronic kidney disease - Abnormal uterine and vaginal bleeding, unspecified - Other terminal operations supervisor (current) drug therapy - Kidney transplant status - Allergy status to other drugs, medicaments and biological substances - Radiographic dye allergy status - Pelvic and perineal pain - Chronic kidney disease, unspecified 07/18/2022 03:20 [facility] [place] TYPE: Emergency COMPLAINT: - RIGHT SIDE ABD PAIN DIAGNOSES: - Radiographic dye allergy status - Right lower quadrant pain - Other chronic pain - Allergy status to other drugs, medicaments and biological substances - Other [place] [facility] (current) drug therapy - Anemia, unspecified - Kidney transplant status 07/17/2022 02:19 [facility] [place] TYPE: Emergency DIAGNOSES: - Right lower quadrant pain - ABD PAIN 07/03/2022 15:09 [facility] [place] TYPE: Emergency COMPLAINT: - ABD PAIN, VOMITING 06/30/2022 15:14 [facility] [place] TYPE: Emergency COMPLAINT: - ABD PAIN,N/V,DIZZY,HURTS TO URINATE DIAGNOSES: - Kidney transplant status - Allergy status to other drugs, medicaments and biological substances - Other [place] [facility] (current) drug therapy - Anemia, unspecified - Fever, unspecified - Radiographic dye allergy status - Chronic salpingitis - Right lower quadrant pain - Left lower quadrant pain 06/29/2022 12:59 [facility] [place] TYPE: Emergency COMPLAINT: - VOMITING, ABD PAIN 06/25/2022 03:03 [facility] [place] TYPE: Emergency DIAGNOSES: - Pelvic and perineal pain - abd pain nausea - Acute cystitis without hematuria 06/20/2022 18:[address] [facility] [place] TYPE: Emergency COMPLAINT: - VAGINAL ISSUE DIAGNOSES: - Anemia, unspecified - Pelvic and perineal pain - Right lower quadrant pain 06/05/2022 08:56 [facility] [place] TYPE: Emergency DIAGNOSES: - CYST PROBLEM - Unspecified ovarian cyst, right side 05/28/2022 18:[address] [facility] [place] TYPE: Emergency COMPLAINT: - RT SIDE PAIN DIAGNOSES: - Unspecified abdominal pain - Anemia, unspecified - Other terminal operations supervisor (current) drug therapy - Allergy status to other drugs, medicaments and biological substances 05/26/2022 21:47 [facility] [place] TYPE: Emergency DIAGNOSES: - Unspecified ovarian cyst, right side - CYST VOMITING FEVER - Right lower quadrant pain 05/25/2022 07:08 [facility]argas TYPE: Emergency COMPLAINT: - ABDOMINAL PAIN DIAGNOSES: - Other nonmedicinal substance allergy status - Kidney transplant status - Chronic kidney disease, unspecified - Right lower quadrant pain - [facility] (current) use of anticoagulants 04/05/2022 15:59 [facility] TYPE: Emergency DIAGNOSES: - hematuria 04/02/2022 13:50 [facility] TYPE: Emergency DIAGNOSES: - Gross hematuria - Other hydronephrosis - Kidney transplant status - Hematuria 01/03/2022 10:[address] [facility] TYPE: Emergency DIAGNOSES: - COVID-19 - VOGT COUGH SORE THROAT VOMITING MUSCLE ACHES FATIGUE + SCREENING - Other specified abnormal findings of blood chemistry - Abnormal results of kidney function studies 12/06/2021 06:42 [facility] [place] TYPE: Emergency DIAGNOSES: - NAUSEA VOMITING RUNNY NOSE CHILLS - Nausea with vomiting, unspecified 12/05/2021 10:03 [facility] [place] TYPE: Emergency DIAGNOSES: - SWOLLEN LYMPH NODES VOMITING SORE THROAT + SCREENING - Generalized enlarged lymph nodes Plus 2 More Visits INPATIENT VISIT TRACKING (12 MO.) 04/05/2022 15:59 [facility] TYPE: Nephrology DIAGNOSES: - hematuria 12/09/2021 18:00 [facility] TYPE: Nephrology DIAGNOSES: - Enlargement of lymph nodes 10/14/2021 18:59 [facility] TYPE: Nephrology COMPLAINT: - kidney tx, UTI DIAGNOSES: - Urinary tract infection, site not specified [id number]
[2022-10-12] MEDS ORDERED: PREDNISONE20 MG PO (16:20)
[2022-10-12] MEDS ORDERED: ONDANSETRON ODT8 MG PO (16:20)
== END 2022-10-12 16:49 | disposition home or self-care (01) ==
LOC: ED 08:40
DX: N18.9 Chronic kidney disease, unspecified (principal); D63.1 Anemia in chronic kidney disease; R11.10 Vomiting, unspecified; Z94.0 Kidney transplant status; Z88.8 Allergy status to other drugs, medicaments and biological substances; Z91.041 Radiographic dye allergy status; Z79.899 Other long term (current) drug therapy
CPT/HCPCS: 36415; 76705; 76775; 80053; 81001; 84100; 84703; 85025; 96361; 96374; 96375; 96376; 99284-25; A9270; J2405; J2930; J7030